=== PATIENT | female | born 1995 | race Caucasian/White ===

== ENCOUNTER 2017-01-30 07:42 | Emergency (ER) | payer BC ==
--- NOTE | 2017-01-30 09:13 | RAD ---
INDICATION: Left lower quadrant pain. Renal calculus. COMPARISON: Left renal sonogram August 02, 2014 TECHNIQUE: Noncontrast axial source images were acquired from the level hemidiaphragms to the symphysis pubis as part of CT imaging for renal stone. Lung bases: The lung bases are clear. Liver: The liver is normal in size. Noncontrast imaging shows no evidence of a hepatic mass or ductal dilatation. Gallbladder: There are no calcified gallstones. There is no evidence of wall thickening or pericholecystic fluid.. Spleen: The spleen is normal in size. The noncontrast CT appearance is normal. Pancreas: Noncontrast imaging shows no pancreatic mass or ductal dilitation. Adrenal glands: No masses are identified. Kidneys/Bladder: There is a 5 mm left UVJ calculus producing mild left-sided hydronephrosis and hydroureter. There is an additional 3 mm lower pole left renal calculus. There are no other calcifications of urinary significance. The bladder is normal. Adenopathy: There is no evidence of intraperitoneal or retroperitoneal adenopathy. Evaluation is limited without oral contrast. Fluid collections: There are no free or localized fluid collections. Vessels: The aorta and iliac vessels are normal in caliber. There are no significant atherosclerotic changes. The IVC appears normal Pelvic organs: The uterus and adnexa appear normal GI tract: Evaluation of the bowel is limited without oral contrast. The stomach, small bowel, and lower GI tract appear grossly normal. There are no obstructive findings. The appendix is visualized and appears normal. Soft tissues: No soft tissue abnormalities of the extraperitoneal abdomen or pelvis are identified. Osseous structures: There are no acute osseous findings. IMPRESSION: LEFT-SIDED URINARY CALCULI WITH A 5 MM, OBSTRUCTIVE, UVJ CALCULUS AND A NONOBSTRUCTIVE 3 MM LOWER POLE RENAL CALCULUS.
[2017-01-30 09:50] VITALS: BP 132/74
--- NOTE | 2017-01-30 10:21 | UC ---
Rodney Wright Angela, scribed for Richard Lu MD on 01/30/17 at 0801 . Abdominal Pain Female HPI - HPI Summary HPI Summary: This pt is a 21 y/o female presenting to [facility] c/o sudden onset left lower quadrant pain since 5:00 this morning. She was seen for this same pain in 2014 and had ultrasounds done. Pt notes taking ibuprofen this morning with no relief. She denies fever, nausea, vomiting, diarrhea, color change of urine, urinary symptoms, back pain. Pt is using testosterone (does not get menstrual cycles) but has not had any other sex change surgeries. - History of Current Complaint Chief Complaint: UCAbdominalPain Stated Complaint: LOWER ABD PAIN Hx Obtained From: Patient Hx Last Menstrual Period: n/a Onset/Duration: Sudden Onset Timing: Constant Pain Intensity: 10 Pain Scale Used: 0-10 Numeric Location: Discrete At: LLQ Radiates: No Aggravating Factor(s): Nothing Alleviating Factor(s): Nothing Associated Signs and Symptoms: Negative: Fever, Back Pain, Urinary Symptoms, Nausea, Vomiting, Diarrhea Allergies/Adverse Reactions: Allergies Allergy/AdvReac Type Severity Reaction Status Date / Time No Known Allergies Allergy Verified 01/30/17 07:50 Home Medications: Home Medications Testosterone Cypionate 100 mg IM 01/30/17 [History] PMH/Surg Hx/FS Hx/Imm Hx Previously Healthy: Yes - Surgical History Surgical History: None - Social History Alcohol Use: Occasionally Substance Use Type: None Smoking Status (MU): Never Smoked Tobacco Have You Smoked in the Last Year: No - Immunization History Most Recent Tetanus Shot: 2014 Review of Systems Constitutional: Negative Skin: Negative Eyes: Negative ENT: Negative Respiratory: Negative Cardiovascular: Negative Gastrointestinal: Abdominal Pain Genitourinary: Negative Motor: Negative Neurological: Negative Psychological: Negative All Other Systems Reviewed And Are Negative: Yes Physical Exam Triage Information Reviewed: Yes Vital Signs: Initial Vital Signs Temp 98.6 F 01/30/17 07:46 Pulse 70 01/30/17 07:46 Resp 18 01/30/17 07:46 BP 142/89 01/30/17 07:46 Pulse Ox 100 01/30/17 07:46 Vital Signs Reviewed: Yes - Additional Comments The patient is well-nourished in mild acute pain. The skin is warm and dry and skin color reflects adequate perfusion. HEENT: The head is normocephalic and atraumatic. The pupils are equal and reactive. The conjunctivae are clear and without drainage. Nares are patent and without drainage. Neck is supple with full range of motion and non-tender. There are no carotid bruits. There is no neck vein distension. Respiratory: Chest is non-tender. Lungs are clear to auscultation and breath sounds are symmetrical and equal. Cardiovascular: Hear is regular rate and rhythm. There is no murmur or rub auscultated. Abdomen: The abdomen is soft. There is tenderness in the LLQ, no rebound, no guarding. There are normal bowel sounds heard in all four quadrants and there is no organomegaly palpated. There is no pain with lower extremity flexion. Musculoskeletal: There is no back pain noted. Extremities are non-tender with full range of motion. There is good capillary refill. There is no peripheral edema or calf tenderness elicited. There is no CVA tenderness. Neurological: Patient is alert and oriented to person, place and time. The patient has symmetrical motor strength in all four extremities. Cranial nerves are grossly intact. Deep tendon reflexes are symmetrical and equal in all four extremities. Psychiatric: The patient has an appropriate affect and does not exhibit any anxiety or depression. Diagnostics - Radiology CT Abd/Pel Xray Interpretation: Positive (See Comments) - Impression: Left-sided urinary calculi with a 5 mm obstructive, UVJ calculus and a nonobstructive 3 mm lower pole renal calculus. Radiology Interpretation Completed By: Radiologist Abd Pain Female Course/Dx - Course Course Of Treatment: Elevated blood pressure noted. Pt was provided with a urine strainer. Pt will be discharged with flomax and percocet. - Differential Dx/Diagnosis Differential Diagnosis: Diverticulitis, Ovarian Cyst, Renal Colic, Urinary Tract Infection, Other Provider Diagnoses: Left distal ureteral calculus. Discharge - Discharge Plan Condition: Stable Disposition: HOME Prescriptions: Tamsulosin CAP* [Flomax CAP*] 0.4 mg PO DAILY #7 cap oxyCODONE/Acetamin 5/325 MG* [Percocet 5/325 TAB*] 1 tab PO Q6H PRN #20 tab MDD 4 PRN Reason: pain Patient Education Materials: Ureteral Stones (ED) Referrals: Shay Ashley MD [Medical Doctor] - Additional Instructions: Your high blood pressure was elevated at this visit. Please follow up with your primary care provider for a blood pressure reading. Please follow up with Dr. Ashley regarding your ureteral stones. The documentation as recorded by the Rodney alicea Angela accurately reflects the service I personally performed and the decisions made by me, Richard Lu MD.
--- NOTE | 2017-02-03 08:40 | UC ---
Progress - Progress Note Progress Note: CALL PATIENT. HIV (-).
== END 2017-01-30 10:10 | disposition home or self-care (01) ==
LOC: UCEAST 07:42
DX: N20.2 Calculus of kidney with calculus of ureter (principal); Z11.4 Encounter for screening for human immunodeficiency virus [HIV]
CPT/HCPCS: 36415; 74176; 81003; 86703; 87086; 99212; G0463

== ENCOUNTER 2019-06-04 12:41 | Emergency (ER) | payer BC ==
[2019-06-04 12:50] VITALS: BP 139/83
--- NOTE | 2019-06-04 13:17 | UC ---
Complaint Female HPI - HPI Summary HPI Summary: 23-YEAR-OLD TRANS-MALE (PREFERRED PRONOUNS HE/HIM) PRESENTING WITH SEVERAL DAYS OF UNUSUAL VAGINAL ODOR. NO DEFINITE CHANGE IN DISCHARGE. DENIES ANY VAGINAL ITCHINESS OR IRRITATION. IS HAVING PROTECTED SEX WITH A MALE PARTNER FOR THE PAST 1 MONTH. DENIES ANY URINARY SYMPTOMS. STATES HIS SISTER RECOMMENDED HE INSERT SOME GARLIC CLOVES INTRAVAGINALLY WHICH HE DID THIS MORNING (JUST 1 CLOVE ) AND NOW STATES HE CANNOT GET IT OUT. IS INTERESTED IN STD TESTING. - History Of Current Complaint Chief Complaint: UCGU Stated Complaint: PRIVATE ISSUE Time Seen by Provider: 06/04/19 12:48 Hx Obtained From: Patient Hx Last Menstrual Period: 3 years Onset/Duration: Gradual Onset, Lasting Days, Still Present Timing: Constant, Lasting Days Severity Initially: Mild Severity Currently: Mild Pain Intensity: 0 Pain Scale Used: 0-10 Numeric Character: Not Applicable Aggravating Factor(s): Nothing Alleviating Factor(s): Nothing Associated Signs And Symptoms: Positive: Vaginal Discharge. Negative: Fever, Back Pain, Vaginal Bleeding/Discharge - Allergies/Home Medications Allergies/Adverse Reactions: Allergies Allergy/AdvReac Type Severity Reaction Status Date / Time No Known Allergies Allergy Verified 06/04/19 12:50 PMH/Surg Hx/FS Hx/Imm Hx Previously Healthy: Yes - Surgical History Surgical History: None - Family History Known Family History: Positive: Non-Contributory - Social History Alcohol Use: Occasionally Substance Use Type: None Smoking Status (MU): Never Smoked Tobacco Have You Smoked in the Last Year: No - Immunization History Most Recent Tetanus Shot: 2014 Review of Systems All Other Systems Reviewed And Are Negative: Yes Constitutional: Positive: Negative Respiratory: Positive: Negative Cardiovascular: Positive: Negative Gastrointestinal: Positive: Negative Genitourinary: Negative: Dysuria, Frequency, Urgency, Vaginal/Penile Itching Physical Exam Triage Information Reviewed: Yes Appearance: Well-Appearing, No Pain Distress, Well-Nourished Vital Signs: Initial Vital Signs Temp 98 F 06/04/19 12:48 Pulse 70 06/04/19 12:48 Resp 16 06/04/19 12:48 BP 139/83 06/04/19 12:48 Pulse Ox 100 06/04/19 12:48 Vital Signs Reviewed: Yes Eyes: Positive: Conjunctiva Clear ENT: Positive: Hearing grossly normal Neck: Positive: Supple Respiratory: Positive: No respiratory distress, No accessory muscle use Cardiovascular: Positive: Pulses Normal Abdomen Description: Positive: Soft Pelvic Exam: Positive: External Exam Normal, Speculum Exam Normal, No Cerv. Motion Tender, Other - 1 GARLIC CLOVE IN VAGINAL VAULT. Negative: Cervicitis, Discharge Musculoskeletal: Positive: No Edema Neurological: Positive: Alert Psychological: Positive: Age Appropriate Behavior Skin: Negative: Rashes Complaint Female Dx - Course Course Of Treatment: GARLIC CLOVE REMOVED TODAY WITHOUT DIFFICULTY. NO EVIDENCE OF VAGINITIS ON PHYSICAL EXAM. SWABS ARE TAKEN FOR GC/CHLAMYDIA AND VAGINITIS. GIVEN PATIENT' S RELATIVE LACK OF SYMPTOMS WILL HOLD OFF ON TREATMENT PENDING RESULTS OF SWABS. PT WILL CALL FOR RESULTS. - Differential Dx/Diagnosis Provider Diagnosis: Vaginal foreign body Discharge ED - Sign-Out/Discharge Documenting (check all that apply): Patient Departure All imaging exams completed and their final reports reviewed: No Studies - Discharge Plan Condition: Stable Disposition: HOME Patient Education Materials: Vaginal Foreign Body (ED) Referrals: Virginia Hui MD [Primary Care Provider] - If Needed Additional Instructions: GARLIC CLOVE REMOVED TODAY WITHOUT DIFFICULTY. SWABS TAKEN FOR GONORRHEA, CHLAMYDIA, BACTERIAL VAGINOSIS, YEAST AND TRICHOMONAS. GIVEN YOUR RELATIVE LACK OF SYMPTOMS WILL HOLD OFF ON TREATMENT PENDING RESULTS OF SWABS. BLOOD DRAWN FOR HIV AND SYPHILIS. YOU MAY CALL US IN A FEW DAYS FOR THESE RESULTS. I RECOMMEND AVOIDING DOUCHING. FOLLOW-UP IF NEEDED - Billing Disposition and Condition Condition: STABLE Disposition: Home
[2019-06-04 20:53] LABS: HIV 4th Generation Nonreactive (Nonreactive)
[2019-06-07 13:16] LABS: Chlamydia trachomatis NAA Negative (Negative); Neisseria gonorrhoeae (GC) NAA Negative (Negative)
== END 2019-06-04 14:14 | disposition home or self-care (01) ==
LOC: UCEAST 12:41
DX: T19.2XXA Foreign body in vulva and vagina, initial encounter (principal); X58.XXXA Exposure to other specified factors, initial encounter; Y92.9 Unspecified place or not applicable
CPT/HCPCS: 36415; 86780; 87389; 87480; 87491; 87510; 87591; 87661; 99212; G0463

== ENCOUNTER 2022-04-10 17:53 | Inpatient (IN) ==
[2022-04-10] MEDS ORDERED: Dinoprostone 10 MG VAG.SUPP VAGINAL ONE (18:27)
[2022-04-10] MEDS ORDERED: Penicillin G Potassium IV 5,000,000 UNITS in NS 0.9% 100 ml BAG 100 ML IVPB ONE (18:47)
[2022-04-10] MEDS ORDERED: Promethazine INJ(RESTRICTED) 25 MG/ML 1 ml VIAL IV PRN (18:47)
[2022-04-10] MEDS ORDERED: Lactated Ringers 1000 ml BAG 1,000 ML IV ONE (18:47)
[2022-04-10] MEDS ORDERED: Buffered Lidocaine 1% SYRIN 1 ml INTRADERM ONE (18:47)
[2022-04-10] MEDS ORDERED: Penicillin G Potassium IV 3,000,000 UNITS in NS 0.9% 100 ml BAG 100 ML IVPB SCH (19:00)
[2022-04-10 19:54] LABS: ABS Lymphocytes 2.5 10^3/ul (1.0-4.8); ABS Monocytes 0.8 10^3/ul (0-0.8); ABS Neutrophils 9.4 10^3/ul (1.5-7.7); Eosinophil % 0.3 %; Hematocrit 38 % (35-47); Hemoglobin 12.7 g/dL (12.0-16.0); Lymphocyte % 19.4 %; Mean Corpuscular HGB Conc 33 g/dL (31-36); Mean Corpuscular Hemoglobin 29 pg (27-31); Mean Corpuscular Volume 87 fL (80-97); Mean Platelet Volume 8.6 fL (7.4-10.4); Platelet Count 242 10^3/uL (150-450); Red Blood Count 4.42 10^6 /uL (3.70-4.87); Red Cell Distribution Width 14 % (10-15); White Blood Count 12.7 10^3/uL (3.5-10.8)
[2022-04-10 20:12] LABS: Urine Benzodiazepine Screen None Detected (None Detect); Urine Cannabinoids Screen None Detected (None Detect); Urine Opiates Screen None Detected (None Detect)
[2022-04-10] MEDS: Promethazine INJ(RESTRICTED) 25 MG/ML 1 ml VIAL IV PRN (23:41)
[2022-04-10] MEDS: Nalbuphine 10 MG/ML 1 ML VIAL IV PRN (23:41)
[2022-04-11] MEDS: Nalbuphine 10 MG/ML 1 ML VIAL IV PRN (04:40)
[2022-04-11] MEDS: Promethazine INJ(RESTRICTED) 25 MG/ML 1 ml VIAL IV PRN (04:40)
[2022-04-11] MEDS: Penicillin G Potassium IV 3,000,000 UNITS in NS 0.9% 100 ml BAG 100 ML IVPB SCH ×3 (04:42→12:42)
[2022-04-11] MEDS ORDERED: Oxytocin in LR 20,000 MILLI.UNIT/1,000 ML BAG IV SCH ×2 (13:00→22:45)
[2022-04-11] MEDS: Lactated Ringers 1000 ml BAG 1,000 ML IV SCH ×2 (13:08→17:57)
[2022-04-11] MEDS ORDERED: OBEPIDURAL (200 ML) 200 ML EPIDURAL ONE (17:41)
[2022-04-11] MEDS ORDERED: Lidocaine 1% VIAL 10 MG/ML VIAL 30 ML ONE (17:51)
[2022-04-11] MEDS ORDERED: Phenylephrine 40 mcg/mL 10mL (400mcg) SYRINGE IV PUSH PRN ×2 (19:36)
[2022-04-11] MEDS ORDERED: Lactated Ringers 1000 ml BAG 1,000 ML IV ONE (19:36)
[2022-04-11] MEDS ORDERED: Sodium Citrate/Citric Acid LIQ 15 ML UDC PO PRN (19:36)
[2022-04-11] MEDS ORDERED: Lactated Ringers 1000 ml BAG 1,000 ML IV SCH ×2 (20:00→23:00)
[2022-04-11] MEDS ORDERED: OBEPIDURAL (200 ML) 200 ML EPIDURAL SCH (20:00)
[2022-04-11] MEDS ORDERED: Penicillin G Potassium IV 3,000,000 UNITS in NS 0.9% 100 ml BAG 100 ML IVPB SCH (20:30)
[2022-04-11 20:50] LABS: Urine Appearance Cloudy; Urine Bilirubin Negative (Negative); Urine Blood 3+ (Negative); Urine Color Yellow; Urine Glucose Negative (Negative); Urine Ketones Negative (Negative); Urine Nitrite Negative (Negative); Urine Protein Negative (Negative); Urine Specific Gravity 1.014 (1.002-1.030); Urine Urobilinogen Negative (Negative)
[2022-04-11] MEDS ORDERED: ceFOXitin 2 GM IVPREMIX 2 GM/50 ML BAG ONE (20:54)
[2022-04-11] MEDS ORDERED: ceFOXitin 2 GM IVPREMIX 2 GM/50 ML BAG IVPB ONE (21:01)
[2022-04-11 21:04] LABS: Urine Bacteria Absent (Absent); Urine Red Blood Cell 3+(>10/hpf) (Absent); Urine Squamous Epithelial Cell Present (Absent); Urine White Blood Cell Trace(0-5/hpf) (Absent)
[2022-04-11] MEDS ORDERED: fentaNYL 100 mcg/2 ml 50 MCG/ML VIAL ONE ×2 (21:10→22:37)
[2022-04-11] MEDS ORDERED: Lidocaine 2% PF 10 ML AMP (OR) ONE (21:10)
[2022-04-11] MEDS ORDERED: Morphine PF AMP (0.5MG/ML) 5 MG/10 ML AMP ONE (21:13)
[2022-04-11] MEDS ORDERED: Oxytocin 10 UNITS/ML 1 ML VIAL ONE ×2 (21:18→22:13)
[2022-04-11] MEDS ORDERED: Ketamine HCL 50 mg/ml 10 ml VIAL (500 MG) ONE (21:29)
[2022-04-11] MEDS ORDERED: Ondansetron 4 mg VIAL 2 MG/ML 2 ml VIAL IV PRN ×2 (22:06)
[2022-04-11] MEDS ORDERED: fentaNYL 100 mcg/2 ml 50 MCG/ML VIAL IV PRN (22:06)
[2022-04-11] MEDS ORDERED: Metoclopramide 5 MG/ML VIAL (10 mg) IV PRN (22:06)
[2022-04-11] MEDS ORDERED: Naloxone 0.4 mg VIAL 0.4 mg/ml 1 ml VIAL IV PRN (22:06)
[2022-04-11] MEDS ORDERED: Naloxone 0.4 mg VIAL 0.4 mg/ml 1 ml VIAL IV PUSH PRN (22:06)
[2022-04-11] MEDS ORDERED: oxyCODONE/Acetamin 5/325 mg TAB PO PRN (22:06)
[2022-04-11] MEDS ORDERED: Acetaminophen IV 1 GM/100ML 1,000 MG/100 ML BAG IV PRN (22:06)
[2022-04-11] MEDS ORDERED: Witch Hazel PAD JAR TOPICAL PRN (22:32)
[2022-04-11] MEDS ORDERED: Glycerin ADULT 2.4 gm SUPP PR PRN (22:32)
[2022-04-11] MEDS ORDERED: Dibucaine 1% OINT 28.35 GM TUBE PR PRN (22:32)
[2022-04-12 07:41] LABS: ABS Eosinophils 0.1 10^3/ul (0-0.6); ABS Lymphocytes 2.3 10^3/ul (1.0-4.8); ABS Monocytes 0.9 10^3/ul (0-0.8); ABS Neutrophils 9.9 10^3/ul (1.5-7.7); Eosinophil % 0.4 %; Hematocrit 33 % (35-47); Hemoglobin 11.1 g/dL (12.0-16.0); Lymphocyte % 17.7 %; Mean Corpuscular HGB Conc 34 g/dL (31-36); Mean Corpuscular Hemoglobin 30 pg (27-31); Mean Corpuscular Volume 86 fL (80-97); Mean Platelet Volume 8.4 fL (7.4-10.4); Platelet Count 201 10^3/uL (150-450); Red Blood Count 3.77 10^6 /uL (3.70-4.87); Red Cell Distribution Width 14 % (10-15); White Blood Count 13.1 10^3/uL (3.5-10.8)
[2022-04-14 08:15] VITALS: BP 127/77
== END 2022-04-14 14:54 | disposition home or self-care (01) | DRG 540 ==
LOC: MCHOBOUT 17:53 → MCHOB 18:26
PROVIDERS: ADMIT Obstetrics & Gynecology; ATTEND Obstetrics & Gynecology

== ENCOUNTER 2024-07-09 05:52 | Inpatient (IN) ==
[2024-07-09 07:14] LABS: Hematocrit 38.6 % (35-45); Hemoglobin 13.5 g/dL (11.5-14.3); Mean Corpuscular Hemoglobin 29.2 pg (27-33); Mean Corpuscular Hgb Conc 34.9 g/dL (31-36); Mean Corpuscular Volume 83.7 fL (80-97); Red Blood Count 4.61 10^6/uL (3.63-4.92); Red Cell Distribution Width 14.2 % (12-17); White Blood Count 12.7 10^3/uL (3.8-11.8)
[2024-07-09] MEDS: Lactated Ringers 1000 ml BAG 1,000 ML IV ONE (07:27)
[2024-07-09] MEDS: Lactated Ringers 1000 ml BAG 1,000 ML IV SCH (07:27)
[2024-07-09] MEDS ORDERED: Oxytocin 10 UNITS/ML 1 ML VIAL ONE (07:28)
[2024-07-09 07:49] LABS: ABS Eosinophils 0.1 10^3/uL (0.0-0.5); ABS Lymphocytes 3.1 10^3/uL (1.0-4.8); ABS Monocytes 0.8 10^3/uL (0.0-0.9); ABS Neutrophils 8.7 10^3/uL (1.5-7.6); ABS Nucleated RBC 0.01 10^3/ul; Eosinophil % 0.6 %; Lymphocyte % 24.1 %; Mean Platelet Volume 8.8 fL (7.5-11.2); Nucleated Red Blood Cells % 0.1 %/100WBC (0.0-0.8); Platelet Count 262 10^3/uL (150-450)
[2024-07-09] MEDS: Sodium Citrate/Citric Acid LIQ 15 ML UDC PO ONE (07:52)
[2024-07-09] MEDS ORDERED: Morphine PF AMP (0.5MG/ML) 5 MG/10 ML AMP ONE (07:53)
[2024-07-09] MEDS ORDERED: Bupivacaine 0.5% SDV PF 30ML VIAL ONE (07:54)
[2024-07-09] MEDS ORDERED: Ondansetron 4 mg VIAL 2 MG/ML 2 ml VIAL ONE (08:29)
[2024-07-09] MEDS: ceFOXitin 2 GM IVPREMIX 2 GM/50 ML BAG IVPB ONE (08:44)
[2024-07-09] MEDS ORDERED: Phenylephrine IV 10 MG/ML 1 ml VIAL ONE (08:49)
[2024-07-09] MEDS ORDERED: Dexamethasone IV 4 MG/ML VIAL 1 ml VIAL ONE (08:57)
[2024-07-09 09:30] LABS: Urine Appearance Clear; Urine Bilirubin Negative (Negative); Urine Blood Negative (Negative); Urine Color Colorless; Urine Glucose Negative (Negative); Urine Ketones Negative (Negative); Urine Nitrite Negative (Negative); Urine Protein Negative (Negative); Urine Specific Gravity 1.003 (1.002-1.030); Urine Urobilinogen Negative (Negative)
[2024-07-09] MEDS ORDERED: Ondansetron 4 mg VIAL 2 MG/ML 2 ml VIAL IV PRN (09:30)
[2024-07-09] MEDS ORDERED: Naloxone 0.4 mg VIAL 0.4 mg/ml 1 ml VIAL IV PUSH PRN (09:30)
[2024-07-09] MEDS ORDERED: Acetaminophen IV 1 GM/100ML 1,000 MG/100 ML BAG IV PRN (09:30)
[2024-07-09 09:33] LABS: Urine Benzodiazepine Screen None Detected (None Detect); Urine Cannabinoids Screen None Detected (None Detect); Urine Opiates Screen None Detected (None Detect)
[2024-07-09] MEDS ORDERED: Acetaminophen IV 1 GM/100ML 1,000 MG/100 ML BAG IV ONE (09:34)
[2024-07-09] MEDS ORDERED: Witch Hazel PAD JAR TOPICAL PRN (10:56)
[2024-07-09] MEDS ORDERED: Glycerin ADULT 2.4 gm SUPP PR PRN (10:56)
[2024-07-09] MEDS ORDERED: Lactated Ringers 1000 ml BAG 1,000 ML IV SCH (11:00)
[2024-07-09] MEDS: Oxytocin in NS 30,000 MILLI.UNIT/500 ML BAG IV SCH (14:07)
[2024-07-09] MEDS: Buffered Lidocaine 1% SYRIN 1 ml INTRADERM ONE (20:24)
[2024-07-10 06:13] LABS: ABS Basophils 0.1 10^3/uL (0.0-0.1); ABS Eosinophils 0.1 10^3/uL (0.0-0.5); ABS Lymphocytes 2.7 10^3/uL (1.0-4.8); ABS Monocytes 0.9 10^3/uL (0.0-0.9); Eosinophil % 1.1 %; Hematocrit 32.2 % (35-45); Hemoglobin 11.3 g/dL (11.5-14.3); Lymphocyte % 20.8 %; Mean Corpuscular Hemoglobin 29.5 pg (27-33); Mean Corpuscular Hgb Conc 34.9 g/dL (31-36); Mean Corpuscular Volume 84.3 fL (80-97); Mean Platelet Volume 8.3 fL (7.5-11.2); Platelet Count 217 10^3/uL (150-450); Red Blood Count 3.82 10^6/uL (3.63-4.92); Red Cell Distribution Width 13.6 % (12-17); White Blood Count 12.8 10^3/uL (3.8-11.8)
[2024-07-11 07:39] VITALS: BP 126/69
== END 2024-07-11 17:17 | disposition home or self-care (01) | DRG 540 ==
LOC: MCHOB 05:52
PROVIDERS: ADMIT Obstetrics & Gynecology; ATTEND Obstetrics & Gynecology